=== PATIENT | female | born 1995 | race African-American/Black ===

== ENCOUNTER 2017-07-14 07:47 | Emergency (ER) | payer OTHER ==
[~2017-07-14] VITALS: Ht 160 cm; Wt 83.0 kg
--- NOTE | ~2017-07-14 | CR127 ---
[facility] A Service of [facility] & [facility] RADIOLOGY TEXT RESULTS PATIENT: BARBER BUSTILLOS LOCATION: [facility] : [birth year] UNIT #: [id number] AGE: [address]: Franck Christie DO SEX: F ORDER DR: [id number] [facility] [address] [place], [place] [address] [id number] E MR#: [id number] Acc #: [id number] NAME: BARBER BUSTILLOS : 1995 SEX: F STUDY DATE/TIME: 07/14/2017 8:14 UNIT: [facility] ROOM: STUDY DESCRIPTION: CR Foot Complete Min 3 View Rt Attending Physician: Franck Christie D.O. Ordering Physician: Franck Christie D.O. Primary Care Physician: No Primary Care Physician MEDICAL IMAGING REPORT This report is preliminary unless electronic signature is present EXAM 3 views right foot. Date: 07/14/2017. HISTORY 22-year-old female with right lateral foot pain for 3 days. No known injury. COMPARISON None. FINDINGS No fracture. No dislocation. Benign corticated calcification. 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 Plantar arch is maintained. No retained radiopaque foreign body. IMPRESSION 1. Normal 3 views of the right foot. Dictated by... Alexandria Varela M.D. THIS IS AN ELECTRONICALLY VERIFIED REPORT Alexandria Varela M.D. at 07/15/2017 1:10 PM LLH/beth TD: 07/14/2017 12:24 JOB #: [id number] MEDICAL IMAGING REPORT Page 1 of 1 COPY
== END 2017-07-14 09:52 | disposition home or self-care (01) ==
LOC: CED 07:47
DX: M72.2 Plantar fascial fibromatosis (principal); F17.200 Nicotine dependence, unspecified, uncomplicated; Z79.899 Other long term (current) drug therapy
CPT/HCPCS: 29405; 73630; 96372; 99283; J1885